=== PATIENT | male | born 1955 | race Caucasian/White ===

== ENCOUNTER 2018-04-21 09:31 | Inpatient (IN) | payer OTHER ==
[~2018-04-21] VITALS: Ht 190.5 cm; Wt 91.2 kg
[~2018-04-21 09:31] MED LIST: CARV6.2554 PO; LOSA50TA3 PO
[2018-04-21 09:45] VITALS: BP_SYST 94
[2018-04-21 10:18] LABS: MEAN CORPUSCULAR HEMOGLOBIN 27 pg (27-31); MEAN CORPUSCULAR HGB CONC 33 % (32-36); MEAN CORPUSCULAR VOLUME 83 fL (79.0-98.0); NEUTROPHILS % (AUTO) 75.5 % (40.0-70.0); PLATELET COUNT (AUTO) 231 K/uL (130-430)
[2018-04-21 10:19] LABS: BASOPHILS % (AUTO) 0.6 % (0.0-2.0); EOSINOPHILS # (AUTO) 0.1 K/uL (0.0-0.4); EOSINOPHILS % (AUTO) 2.9 % (0.0-4.0); LYMPHOCYTES # (AUTO) 0.6 K/uL (1.0-5.5); LYMPHOCYTES % (AUTO) 11.5 % (20.5-51.5); MONOCYTES # (AUTO) 0.5 K/uL (0.0-1.0); MONOCYTES % (AUTO) 9.5 % (1.7-9.3); NEUTROPHILS # (AUTO) 3.8 K/uL (1.8-7.7)
[2018-04-21 10:34] LABS: CALCIUM 8.6 mg/dL (8.4-11.0); CREATININE 1.9 mg/dL (0.55-1.30); POTASSIUM 3.5 mmol/L (3.5-5.1)
[2018-04-21 10:39] LABS: ALBUMIN 3.3 g/dL (3.4-4.8); INR 1.2 (0.80-1.20); PROTHROMBIN TIME 12.7 SECS (9.5-12.5); TOTAL BILIRUBIN 1.3 mg/dL (0.0-1.0)
--- NOTE | 2018-04-21 10:45 | NUR ---
Patient to ER bed 2 to gown for evaluation. Side rails up. Report given to Sonia RIZZO.
--- NOTE | 2018-04-21 10:48 | NUR ---
patient arrived AOx4 with c/o a cough and runny nose x 3 days. patients lung johns are rhonchi bilaterally patient states he just feels more sick than normal. patient has a history of extensive heart problems. 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
--- NOTE | 2018-04-21 10:55 | NUR ---
ER at bedside examining patient.
[2018-04-21] MEDS ORDERED: LEVO88TA5 PO (11:28)
[2018-04-21] MEDS ORDERED: BUME2TAB3 PO (11:28)
[2018-04-21] MEDS ORDERED: LIP80 PO (11:28)
[2018-04-21] MEDS ORDERED: FOLI-43 PO (11:28)
[2018-04-21] MEDS ORDERED: CARV3.1246 PO (11:28)
[2018-04-21] MEDS ORDERED: PRED1TAB PO (11:28)
[2018-04-21] MEDS ORDERED: POTA10TA15 PO (11:28)
[2018-04-21] MEDS ORDERED: APIX5TAB4 PO (11:28)
[2018-04-21] MEDS ORDERED: AMIO200T4 PO (11:28)
[2018-04-21] MEDS ORDERED: SPIR25TA PO (11:28)
--- NOTE | 2018-04-21 11:28 | NUR ---
Medication reconciliation completed with information provided by patient . Any prior medication reconciliation on file was reviewed and corrected.
--- NOTE | 2018-04-21 13:58 | NUR ---
ADMISSION NOTE Received patient from ER via tommie, received report from SAL RIZZO. Patient admitted with diagnosis of CHF EXACERBATION. Patient oriented to hospital routine, call light, toileting and safety-patient verbalized understanding.
--- NOTE | 2018-04-21 14:00 | NUR ---
Patient will be admitted to care of MD David. Admitted to [facility] unit. Will go to room 101-B. Belongings list completed. Summary report printed. Report will be given at bedside.
--- NOTE | 2018-04-21 14:04 | NUR ---
CONSULTATION PAGED REASON FOR CONSULTATION:CHF EXACERBATION WAS CONSULT CALLED?Y PERSON WHO WAS NOTIFIED:ALVARO CONSULTING PHYSICIAN:IGGY HANNA CREAM BEATER SPECIALTY:CARDIO CREAM BEATER PHONE NUMBER:[phone] ORDERING PHYSICIAN:HECTOR BOB
[2018-04-21 14:15] VITALS: BP_SYST 97
[2018-04-21] MEDS ORDERED: ASPI-1155 PO (14:29)
[2018-04-21] MEDS ORDERED: POTASSIUM CHLORIDE 20 MEQ TAB.PRT.SR PO PRN (14:30)
[2018-04-21] MEDS ORDERED: MAGNESIUM SULFATE 50 ML IV PRN (14:30)
[2018-04-21] MEDS ORDERED: MUPIROCIN 2% TOPICAL OINTMENT 22 GM NS PRN (14:30)
[2018-04-21] MEDS ORDERED: ONDANSETRON HCL 4 MG/2 ML VIAL IVP PRN (14:30)
[2018-04-21] MEDS ORDERED: LORazepam 2 MG/ML VIAL IVP PRN (14:30)
[2018-04-21] MEDS ORDERED: DOCUSATE SODIUM 100 MG CAPSULE PO PRN (14:30)
[2018-04-21] MEDS ORDERED: FUROSEMIDE 40 MG/4 ML VIAL IVP ONE (14:30)
[2018-04-21] MEDS ORDERED: MORPHINE 4 MG/ML INJ. SYRINGE IVP PRN ×2 (14:30)
--- NOTE | 2018-04-21 14:40 | NUR ---
All home medication endorsed to Pharmacy patient informed/agreed.
[2018-04-21] MEDS ORDERED: NACL 0.9% 1,000 ML IV SCH (14:45)
[2018-04-21] MEDS: ACETAMINOPHEN 325 MG TABLET PO PRN ×2 (15:47→22:14)
--- NOTE | 2018-04-21 18:17 | NUR ---
CLOSING NOTES PT HAS BEEN STABLE, GIVEN TYLENOL FOR HEADACHE. GIVEN LASIX ORDERED. IV FLUIDS INFUSING WELL. WILL BE NPO FOR BREAKFAST OF U/S OF ABDOMEN. PT IS AWARE OF THE REASON FOR THE TEST. WILL ENDORSE TO NIGHT RN.
[2018-04-21 20:00] VITALS: BP_SYST 92
--- NOTE | 2018-04-21 20:00 | NUR ---
Initial Notes Received patient resting in bed, awake, alert, oriented. Patient denies any acute distress at this time. Breathing is even and unlabored. IV site patent/clean/dry. Needs addressed. Educated patient regarding use of call light for assistance and fall precautions, patient verbalized understanding. Call light in hand, fall precautions in place, will continue to monitor.
[2018-04-21] MEDS: cefTRIAXone 1 GM in D5W 50 ML IV SCH (20:10)
[2018-04-21] MEDS: AMIODARONE HCL 200 MG TABLET PO SCH (20:11)
[2018-04-21] MEDS: ATORVASTATIN 20 MG TABLET PO SCH (20:11)
[2018-04-21] MEDS: APIXABAN 2.5 MG TABLET PO SCH (20:12)
[2018-04-21] MEDS: CARVEDILOL 3.125 MG TABLET (COREG) PO SCH (20:19)
--- NOTE | 2018-04-21 22:00 | NUR ---
Nursing Notes Patient resting in bed watching TV. Patient denies any acute distress. Patient noted generalized body aches, will medicate per MD orders. IV site patent/clean/dry. Needs addressed. Call light in hand, fall precautions in place.
[2018-04-21] MEDS: ZOLPIDEM TARTRATE 5 MG TABLET PO PRN (22:35)
[2018-04-22] VITALS (7 sets, daily range): BP systolic 91–105
--- NOTE | 2018-04-22 | NUR ---
Nursing Notes Patient resting in bed with eyes closed. No acute distress noted, breathing is even and unlabored. IV site patent/clean/dry. Call light in hand, fall precautions in place.
--- NOTE | 2018-04-22 02:00 | NUR ---
Nursing Notes Patient continues to be resting in bed with eyes closed. No acute distress noted. Breathing is even and unlabored. IV site patent/clean/dry. Call light in hand, fall precautions in place, will continue to monitor.
--- NOTE | 2018-04-22 04:06 | NUR ---
Nursing Notes Patient resting in bed with eyes closed, easily aroused. Patient denies any acute distress or pain at this time. Breathing is even and unlabored. IV site patent/clean/dry. Needs addressed. Fall precautions in place, will continue to monitor.
[2018-04-22] MEDS: LEVOTHYROXINE SODIUM 0.088 MG TABLET PO SCH (06:06)
--- NOTE | 2018-04-22 06:34 | NUR ---
Closing Notes Patient resting in bed with eyes closed, easily aroused. Patient denies any acute distress or pain at this time. Breathing is even and unlabored. IV site patent/clean/dry, no S/S infection/infiltration noted. Needs addressed throughout shift. Call light in hand, fall precautions in place. Will continue to monitor for changes and safety, and endorse all patient care/needs to oncoming nurse. Patient has been NPO since midnight for ordered diagnostic test this morning.
[2018-04-22 07:54] LABS: CALCIUM 8.3 mg/dL (8.4-11.0); CREATININE 1.55 mg/dL (0.55-1.30); POTASSIUM 3.6 mmol/L (3.5-5.1)
--- NOTE | 2018-04-22 08:00 | NUR ---
OPENING NOTE: RECEIVED REPORT FROM NIGHT NURSE. PATIENT IS RESTING COMFORTABLY IN BED. PATIENT IS ALERT AND ORIENTED, ABLE TO EXPRESS NEEDS, AND ASK FOR ASSISTANCE. IV IS PATENT AND INFUSING. CALL LIGHT IN REACH, BED IN LOWEST POSITION, AND WILL CONTINUE TO MONITOR.
[2018-04-22 08:05] LABS: THYROID STIMULATING HORMONE 21.84 uIu/mL (0.36-3.74)
[2018-04-22 08:06] LABS: HEMATOCRIT 39.1 % (36-54); HEMOGLOBIN 12.8 g/dL (14.0-18.0); MEAN CORPUSCULAR HEMOGLOBIN 27 pg (27-31); MEAN CORPUSCULAR HGB CONC 33 % (32-36); MEAN CORPUSCULAR VOLUME 82 fL (79.0-98.0); RED BLOOD CELL COUNT(AUTO) 4.77 MIL/uL (4.2-6.2); WHITE BLOOD COUNT (AUTO) 4.7 K/uL (4.8-10.8)
[2018-04-22 08:07] LABS: PLATELET COUNT (AUTO) 210 K/uL (130-430); RED CELL DISTRIBUTION WIDTH 16.3 % (9.0-15.0)
[2018-04-22] MEDS: ASPIRIN 81 MG TAB.CHEW PO SCH (08:54)
[2018-04-22] MEDS: AMIODARONE HCL 200 MG TABLET PO SCH ×2 (08:54→20:30)
[2018-04-22] MEDS: CARVEDILOL 3.125 MG TABLET (COREG) PO SCH ×2 (08:54→20:32)
[2018-04-22] MEDS: FUROSEMIDE 40 MG/4 ML VIAL IVP SCH (08:55)
[2018-04-22] MEDS: APIXABAN 2.5 MG TABLET PO SCH ×2 (08:56→20:31)
[2018-04-22 09:00] LABS: NEUTROPHILS % (AUTO) 67.1 % (40.0-70.0)
[2018-04-22 09:01] LABS: BASOPHILS % (AUTO) 0.6 % (0.0-2.0); EOSINOPHILS # (AUTO) 0.2 K/uL (0.0-0.4); EOSINOPHILS % (AUTO) 3.3 % (0.0-4.0); LYMPHOCYTES # (AUTO) 0.8 K/uL (1.0-5.5); LYMPHOCYTES % (AUTO) 16.7 % (20.5-51.5); MONOCYTES # (AUTO) 0.6 K/uL (0.0-1.0); MONOCYTES % (AUTO) 12.3 % (1.7-9.3); NEUTROPHILS # (AUTO) 3.1 K/uL (1.8-7.7)
--- NOTE | 2018-04-22 09:06 | NUR ---
MORNING MEDICATIONS PER DR. MARSHALL IT IS OKAY TO GIVE LASIX, COREG, AND AMIODARONE DESPITE LOW BLOOD PRESSURE OF 95/67. WILL MONITOR BLOOD PRESSURE.
[2018-04-22] MEDS: IPRATROPIUM/ALBUTEROL SULFATE 3 ML AMPUL.NEB (DUONEB) INH SCH ×4 (11:00→23:19)
--- NOTE | 2018-04-22 12:30 | NUR ---
RN ROUNDS PATIENT IS RESTING COMFORTABLY IN BED. NO S/S OF DISTRESS OR SOB. PATIENT IS ALERT AND ORIENTED. NO NEEDS AT THIS TIME. CALL LIGHT IN REACH, BED IN LOWEST POSITION, AND WILL CONTINUE TO MONITOR.
--- NOTE | 2018-04-22 16:30 | NUR ---
RN ROUNDS PATIENT IS SLEEPING COMFORTABLY IN BED. NO S/S OF DISTRESS OR SOB. PATIENT IS ALERT AND ORIENTED. NO NEEDS AT THIS TIME. CALL LIGHT IN REACH, BED IN LOWEST POSITION, AND WILL CONTINUE TO MONITOR.
[2018-04-22] MEDS: cefTRIAXone 1 GM in D5W 50 ML IV SCH (18:28)
[2018-04-22] MEDS: ACETAMINOPHEN 325 MG TABLET PO PRN (18:28)
--- NOTE | 2018-04-22 18:51 | NUR ---
CLOSING NOTE: PATIENT IS RESTING COMFORTABLY IN BED. NO S/S OF DISTRESS OR SOB. PATIENT IS ALERT AND ORIENTED. ALL NEEDS MET DURING SHIFT. IV IS INFUSING HIS ANTIBIOTIC. CALL LIGHT IN REACH, BED IN LOWEST POSITION, AND WILL GIVE REPORT TO NIGHT NURSE.
--- NOTE | 2018-04-22 20:00 | NUR ---
Initial Notes Received patient resting in bed, awake, alert, oriented. Patient denies any acute distress or pain at this time. Breathing is even and unlabored. IV site patent/clean/dry. Needs addressed. Educated patient regarding use of call light for assistance and fall precautions, patient verbalized understanding. Call light in hand, fall precautions in place, will continue to monitor.
[2018-04-22] MEDS: ATORVASTATIN 20 MG TABLET PO SCH (20:30)
[2018-04-22] MEDS: ZOLPIDEM TARTRATE 5 MG TABLET PO PRN (22:09)
--- NOTE | 2018-04-22 22:19 | NUR ---
Nursing Notes Patient resting in bed watching TV. Patient denies any acute distress or pain at this time. Breathing is even and unlabored. Medicated patient for sleep per MD orders. Snacks given to patient per request. Needs addressed. Call light in hand, fall precautions in place.
--- NOTE | 2018-04-23 | NUR ---
Nursing Notes Patient resting in bed with eyes closed, easily aroused. Patient denies any acute distress or pain at this time. Breathing is even and unlabored. Needs addressed. Call light in hand, fall precautions in place. Will continue to monitor.
--- NOTE | 2018-04-23 02:21 | NUR ---
Nursing Notes Patient resting in bed with eyes closed. No distress noted, breathing is even and unlabored. Call light in hand, fall precautions in place. Will continue to monitor.
[2018-04-23] MEDS: IPRATROPIUM/ALBUTEROL SULFATE 3 ML AMPUL.NEB (DUONEB) INH SCH ×7 (03:00→22:52)
[2018-04-23] MEDS: ACETAMINOPHEN 325 MG TABLET PO PRN ×3 (03:21→23:38)
--- NOTE | 2018-04-23 04:41 | NUR ---
Nursing Notes Patient resting in bed with eyes closed, easily aroused upon nurse entering room. Patient denies any acute distress at this time. Breathing is even and unlabored. IV site patent/clean/dry. Patient denies any needs at this time.. Call light in hand, fall precautions in place.
[2018-04-23] MEDS: LEVOTHYROXINE SODIUM 0.088 MG TABLET PO SCH (06:18)
--- NOTE | 2018-04-23 06:34 | NUR ---
Closing Notes Patient resting in bed watching TV. Patient denies any acute distress or pain at this time. Breathing is even and unlabored. IV site patent/clean/dry, no S/S infection/infiltration noted. Needs addressed throughout shift. Call light in hand, fall precautions in place. Will continue to monitor for changes and safety, and endorse all patient care/needs to oncoming nurse.
[2018-04-23 06:53] LABS: HEMATOCRIT 39.3 % (36-54); HEMOGLOBIN 12.8 g/dL (14.0-18.0); MEAN CORPUSCULAR HEMOGLOBIN 27 pg (27-31); MEAN CORPUSCULAR HGB CONC 33 % (32-36); MEAN CORPUSCULAR VOLUME 82 fL (79.0-98.0); RED BLOOD CELL COUNT(AUTO) 4.79 MIL/uL (4.2-6.2); WHITE BLOOD COUNT (AUTO) 5.7 K/uL (4.8-10.8)
[2018-04-23 06:54] LABS: BASOPHILS % (AUTO) 0.4 % (0.0-2.0); EOSINOPHILS # (AUTO) 0.1 K/uL (0.0-0.4); LYMPHOCYTES # (AUTO) 0.7 K/uL (1.0-5.5); LYMPHOCYTES % (AUTO) 11.8 % (20.5-51.5); MONOCYTES # (AUTO) 0.6 K/uL (0.0-1.0); MONOCYTES % (AUTO) 11.2 % (1.7-9.3); NEUTROPHILS # (AUTO) 4.3 K/uL (1.8-7.7); NEUTROPHILS % (AUTO) 74.6 % (40.0-70.0); PLATELET COUNT (AUTO) 221 K/uL (130-430); RED CELL DISTRIBUTION WIDTH 15.8 % (9.0-15.0)
[2018-04-23 07:08] LABS: ALBUMIN 2.5 g/dL (3.4-4.8); CALCIUM 8.2 mg/dL (8.4-11.0); CREATININE 1.42 mg/dL (0.55-1.30); POTASSIUM 3.7 mmol/L (3.5-5.1); TOTAL BILIRUBIN 0.9 mg/dL (0.0-1.0)
--- NOTE | 2018-04-23 07:44 | NUR ---
Opening Note: Patient laying in bed resting. Patient denies pain and discomfort. Breathing is even and unlabored with no distress noted. IV patent and intact and saline locked, no signs of infiltration noted. Safety precautions in place; bed in lowest position, wheels locked, side rails x3 and call light within reach. No needs at this time. Will continue to monitor.
[2018-04-23 08:12] VITALS: BP_SYST 100
[2018-04-23] MEDS: CARVEDILOL 3.125 MG TABLET (COREG) PO SCH ×2 (08:21→20:42)
[2018-04-23] MEDS: FUROSEMIDE 40 MG/4 ML VIAL IVP SCH (08:21)
[2018-04-23] MEDS: AMIODARONE HCL 200 MG TABLET PO SCH ×2 (08:22→20:43)
[2018-04-23] MEDS: ASPIRIN 81 MG TAB.CHEW PO SCH (08:22)
[2018-04-23] MEDS: APIXABAN 2.5 MG TABLET PO SCH ×2 (08:24→20:45)
[2018-04-23] MEDS ORDERED: AZITHROMYCIN 250 MG TABLET PO ONE (10:15)
[2018-04-23] MEDS ORDERED: IPRATROPIUM/ALBUTEROL SULFATE 3 ML AMPUL.NEB (DUONEB) INH PRN (10:15)
[2018-04-23 12:08] VITALS: BP_SYST 101
--- NOTE | 2018-04-23 12:08 | NUR ---
Rounds: Patient sitting up in bed eating lunch at this time. Patient denies pain and discomfort. No SOB or respiratory distress noted. Morning medications tolerated well. Safety precautions in place and call light within reach. No needs at this time. Will continue to monitor.
--- NOTE | 2018-04-23 14:26 | NUR ---
Rounds: Patient sitting up in bed resting. Patient medicated for pain, will reassess. No SOB or respiratory distress noted. Safety precautions in place and call light within reach. No needs at this time. Will continue to monitor.
[2018-04-23 16:05] VITALS: BP_SYST 106
[2018-04-23] MEDS: cefTRIAXone 1 GM in D5W 50 ML IV SCH (18:27)
--- NOTE | 2018-04-23 18:47 | NUR ---
Closing Notes: Patient laying in bed resting. Patient denies pain and discomfort. Breathing is even and unlabored with no distress noted. IV patent and intact running Rocephin at this time, no signs of infiltration noted. Safety precautions in place; bed in lowest position, wheels locked, side rails x3 and call light within reach. All needs met. Will endorse plan of care to NOC, nurse.
--- NOTE | 2018-04-23 19:34 | NUR ---
OPENING NOTES Pt and endorsement received from day shift nurse. Pt is AAOx4, lying in bed. Pt on O2 inhalation at 2L/min via nasal cannula. Pt on saline lock on left AC G22. No complains of pain at this time. No signs of acute distress or SOB noted. Encouraged to use call light when needed. Safety precautions in place with 2 side rails up, bed locked, and at lowest position. Pt refused bed alarm and was educated on safety precautions, pt verbalizes understanding. Call light with pt. Will continue to monitor. Addendum: 04/23/18 at 1945 by Lucretia Oleary RN Naty Rosenberg at bedside.
[2018-04-23 20:40] VITALS: BP_SYST 102
[2018-04-23] MEDS: ATORVASTATIN 20 MG TABLET PO SCH (20:43)
[2018-04-23] MEDS: ZOLPIDEM TARTRATE 5 MG TABLET PO PRN (23:38)
--- NOTE | 2018-04-23 23:38 | NUR ---
TYLENOL 325MG AND AMBIEN 10MG GIVEN Pt complained of headache and also asked for his sleeping pill. Tylenol 325mg and Ambien 10mg PO given as ordered. Snacks and drinks were given per pt's request. No signs of acute distress or SOB noted. Safety precautions in place and call light with pt. Will continue to monitor.
[2018-04-24 00:23] VITALS: BP_SYST 104
--- NOTE | 2018-04-24 02:37 | NUR ---
RESTING Pt is resting in bed with both eyes closed. With visible chest rise and fall with unlabored breathing noted. No signs of acute distress or SOB noted. No complains of pain or discomfort at this time. Call light with pt, bed locked and at lowest position. Will continue to monitor.
[2018-04-24] MEDS: IPRATROPIUM/ALBUTEROL SULFATE 3 ML AMPUL.NEB (DUONEB) INH SCH ×3 (03:00→11:00)
--- NOTE | 2018-04-24 04:20 | NUR ---
RESTING Pt is resting in bed with both eyes closed. With visible chest rise and fall with unlabored breathing noted. No complains of pain and no signs of acute distress or SOB noted. Call light with pt, bed locked and at lowest position. Will continue to monitor.
--- NOTE | 2018-04-24 06:23 | NUR ---
CLOSING NOTES Pt is resting in bed with both eyes closed. With visible chest rise and fall with unlabored breathing noted. No complains of pain or discomfort at this time. No signs of acute distress or SOB noted. All needs attended throughout the shift. Safety precautions maintained with 2 side rail up, bed locked and at lowest position. Call light with pt. Will endorse to day shift nurse.
[2018-04-24] MEDS ORDERED: LEVOTHYROXINE SODIUM 0.1 MG TABLET PO SCH (07:00)
[2018-04-24 07:33] LABS: CALCIUM 8.2 mg/dL (8.4-11.0); CREATININE 1.27 mg/dL (0.55-1.30); POTASSIUM 3.3 mmol/L (3.5-5.1)
--- NOTE | 2018-04-24 07:50 | NUR ---
INITIAL NOTE RECEIVED PATIENT FROM SECURITY SERVICES MANAGER NURSE, PATIENT ALERT AND ORIENTED X 4, ABLE TO MAKE NEEDS KNOWN. IV IN LEFT FOREARM SALINE LOCK, INSTRUCTED PATIENT TO USE CALL GARZA IF ASSISTANCE IS NEEDED, PATIENT VERBALIZED UNDERSTANDING. CALL BEL WITHIN REACH, BED IN LOWEST POSITION, FALL PRECAUTIONS IN PLACE. WILL CONTINUE TO MONITOR.
[2018-04-24 08:00] VITALS: BP_SYST 101
[2018-04-24 08:15] LABS: HEMATOCRIT 38.4 % (36-54); HEMOGLOBIN 12.7 g/dL (14.0-18.0); MEAN CORPUSCULAR HEMOGLOBIN 27 pg (27-31); MEAN CORPUSCULAR HGB CONC 33 % (32-36); MEAN CORPUSCULAR VOLUME 81 fL (79.0-98.0); PLATELET COUNT (AUTO) 243 K/uL (130-430); RED BLOOD CELL COUNT(AUTO) 4.72 MIL/uL (4.2-6.2); RED CELL DISTRIBUTION WIDTH 15.9 % (9.0-15.0); WHITE BLOOD COUNT (AUTO) 4.8 K/uL (4.8-10.8)
[2018-04-24 08:16] LABS: BASOPHILS % (AUTO) 0.7 % (0.0-2.0); EOSINOPHILS # (AUTO) 0.2 K/uL (0.0-0.4); EOSINOPHILS % (AUTO) 3.9 % (0.0-4.0); LYMPHOCYTES # (AUTO) 0.8 K/uL (1.0-5.5); LYMPHOCYTES % (AUTO) 16.3 % (20.5-51.5); MONOCYTES # (AUTO) 0.5 K/uL (0.0-1.0); MONOCYTES % (AUTO) 10.3 % (1.7-9.3); NEUTROPHILS # (AUTO) 3.3 K/uL (1.8-7.7); NEUTROPHILS % (AUTO) 68.8 % (40.0-70.0)
[2018-04-24] MEDS: ASPIRIN 81 MG TAB.CHEW PO SCH (08:20)
[2018-04-24] MEDS: FUROSEMIDE 40 MG/4 ML VIAL IVP SCH (08:21)
[2018-04-24] MEDS: APIXABAN 2.5 MG TABLET PO SCH (08:23)
[2018-04-24] MEDS: ACETAMINOPHEN 325 MG TABLET PO PRN (08:31)
--- NOTE | 2018-04-24 08:34 | NUR ---
MEDICATIONS PATIENT GIVEN MORNING MEDICATIONS, NO OTHER NEEDS AT THIS TIME, CALL GARZA WITHIN REACH, WILL CONTINUE TO MONITOR. Addendum: 04/24/18 at 0931 by Channdi Morejon RN PATIENT GIVEN 40 MEQ OF POTASSIUM WELL. EDUCATED PATIENT ON MEDICATION, PATIENT VERBALIZED UNDERSTANDING.
[2018-04-24] MEDS ORDERED: AZITHROMYCIN 250 MG TABLET PO SCH (09:00)
[2018-04-24] MEDS: CARVEDILOL 3.125 MG TABLET (COREG) PO SCH (09:33)
[2018-04-24] MEDS: AMIODARONE HCL 200 MG TABLET PO SCH (09:34)
--- NOTE | 2018-04-24 10:33 | NUR ---
ROUNDS PATIENT CURRENTLY SITTING UP IN CHAIR, NO SIGNS OF DISTRESS NOTED, BREATHING EVEN AND UNLABORED, WILL CONTINUE TO MONITOR.
[2018-04-24 11:30] VITALS: BP_SYST 99
[2018-04-24 11:55] VITALS: BP_SYST 100
--- NOTE | 2018-04-24 12:00 | NUR ---
ROUNDS PATIENT CURRENTLY RESTING IN BED, NO SIGNS OF DISTRESS NOTED AT THIS TIME, WILL CONTINUE TO MONITOR.
[2018-04-24] MEDS ORDERED: AZIT250T PO (13:02)
[2018-04-24] MEDS ORDERED: LEVO100T9 PO (13:03)
--- NOTE | 2018-04-24 13:44 | NUR ---
D/C Patient Patient given medication reconciliation form and D/C instructions. Exit Care provided. Patient verbalized understanding. MD discussed with patient the results and treatment provided. Ambulatory with steady gait for discharge to home. Patient in stable condition, ID band removed. IV catheter removed, intact and dressing applied, no active bleeding. Rx of ZITHROMAX AND LEVOTHYROXINE given. Patient educated on pain management. All belongings sent with patient. Client has a follow up appointment with fire engine pump operator at [facility] at 1300.
--- NOTE | 2018-04-27 14:21 | NUR ---
DISCHARGE FOLLOW UP PHONE CALL: RUBBISH COLLECTION SUPERVISOR phoned pt @ [phone]. RUBBISH COLLECTION SUPERVISOR spoke with pt who stated that he is still "coughing with a lot of phlegm" and pt is not sleeping well because of it. Pt stated his bronchitis has not improved even after discharge. RUBBISH COLLECTION SUPERVISOR encouraged pt to call PCP, Dr. Hernandez or come to [facility] ER and get checked again; pt agreed to call MD. Pt stated he was able to fill his prescription and does not have questions about medication instructions. Pt stated he has an appointment with PCP at [facility] on 05/04. RUBBISH COLLECTION SUPERVISOR encouraged pt to call SS if any other questions arise. No further SS phone call needed at this time.
== END 2018-04-24 13:40 | disposition home or self-care (01) | DRG 280 ==
LOC: SED 09:31 → STU 12:12
PROVIDERS: ADMIT General Practice; ATTEND General Practice
DX: I21.A1 Myocardial infarction type 2 (principal); N17.0 Acute kidney failure with tubular necrosis; I50.43 Acute on chronic combined systolic (congestive) and diastolic (congestive) heart failure; I42.0 Dilated cardiomyopathy; N18.4 Chronic kidney disease, stage 4 (severe); D68.9 Coagulation defect, unspecified; E03.9 Hypothyroidism, unspecified; R74.0 Nonspecific elevation of levels of transaminase and lactic acid dehydrogenase [LDH]; I25.10 Atherosclerotic heart disease of native coronary artery without angina pectoris; I48.0 Paroxysmal atrial fibrillation; J20.9 Acute bronchitis, unspecified; Z76.82 Awaiting organ transplant status; Z79.01 Long term (current) use of anticoagulants; Z87.891 Personal history of nicotine dependence; Z95.810 Presence of automatic (implantable) cardiac defibrillator
CPT/HCPCS: 36415; 71045; 76700-TC; 80048; 80053; 83036; 83735-TC; 83880; 84439; 84443-TC; 84484; 85025; 85610-TC; 85730-TC; 93005; 93306; 94640; 94760; 99285; G0378; J0696; J1940; J7030; J7060; J7620; Q0144

== ENCOUNTER 2018-09-11 12:07 | Emergency (ER) | payer OTHER ==
[~2018-09-11] VITALS: Ht 190.5 cm; Wt 86.2 kg
[~2018-09-11 12:07] MED LIST changes: +AMIO200T4 PO; +APIX5TAB4 PO; +ASPI-1155 PO; +AZIT250T PO; +BUME2TAB3 PO; +CARV3.1246 PO; -CARV6.2554 PO; +FOLI-43 PO; +LEVO100T9 PO; +LIP80 PO; -LOSA50TA3 PO; +POTA10TA15 PO; +PRED1TAB PO; +SPIR25TA PO
[2018-09-11 12:22] VITALS: BP_SYST 95
--- NOTE | 2018-09-11 12:27 | NUR ---
Patient to ER bed 6 to gown for evaluation. Side rails up. Report given to Azeem RIZZO.
--- NOTE | 2018-09-11 12:30 | NUR ---
Pt presents to ED c/o R [facility]. Pt denies KO.
--- NOTE | 2018-09-11 12:35 | NUR ---
ER at bedside examining patient.
--- NOTE | 2018-09-11 12:40 | NUR ---
Bedside XRay done
[2018-09-11 13:34] VITALS: BP_SYST 95
--- NOTE | 2018-09-11 13:35 | NUR ---
Patient given written and verbal discharge instructions and verbalizes understanding. ER MD discussed with patient the results and treatment provided. Patient in stable condition. ID arm band removed. Rx of [place] and Colace given. Patient educated on pain management and to follow up with PMD. Pain Scale 4/10. Opportunity for questions provided and answered. Medication side effect fact sheet provided.
== END 2018-09-11 13:34 | disposition home or self-care (01) ==
LOC: SED 12:07
DX: M25.531 Pain in right wrist (principal); Z86.79 Personal history of other diseases of the circulatory system; Z79.82 Long term (current) use of aspirin; Z79.899 Other long term (current) drug therapy; W19.XXXA Unspecified fall, initial encounter; Y93.89 Activity, other specified; Y92.89 Other specified places as the place of occurrence of the external cause; Y99.8 Other external cause status
CPT/HCPCS: 99283

== ENCOUNTER → 2021-10-19 | Emergency (ER) | payer BC, OTHER ==
[~2021-10-19] MED LIST changes: -AMIO200T4 PO; +AMIO200T61 PO; -AZIT250T PO; -BUME2TAB3 PO; +BUME2TAB7 PO; +ZIT250 PO
--- NOTE | 2021-10-19 12:38 | NUR ---
PATIENT CALLED TO LET ME KNOW THAT THERE WAS NO SEATS IN THE WAITING ROOM AND THAT HE LEFT TO GO TO AN URGENT CARE. [phone]
== END | disposition left against medical advice (07) ==
LOC: SED 12:12
DX: R06.02 Shortness of breath (principal); Z53.21 Procedure and treatment not carried out due to patient leaving prior to being seen by health care provider